=== PATIENT | male | born 1980 | race African-American/Black ===

== ENCOUNTER 2016-10-30 00:16 | Emergency (ER) ==
[2016-10-30 00:30] VITALS: BP 137/83; TEMP 98; BMI 29.0
[2016-10-30 01:03] LABS: BASOPHILS # (AUTO) 0.1 K/uL (0-0.2); BASOPHILS % (AUTO) 0.6 % (0.0-3.0); EOSINOPHILS # (AUTO) 0.3 K/ul (0.0-0.7); EOSINOPHILS % (AUTO) 3.1 % (0.0-7.0); HEMATOCRIT 44.8 % (42.0-52.0); HEMOGLOBIN 15.2 g/dl (14.0-18.0); IMMATURE GRANULOCYTE % (AUTO) 0.3 % (0.0-5.0); LYMPHOCYTES # (AUTO) 4.8 K/uL (0.60-3.4); LYMPHOCYTES % (AUTO) 44.2 (10.0-50.0); MEAN CORPUSCULAR HEMOGLOBIN 30.1 pg (27.0-31.0); MEAN CORPUSCULAR HGB CONC 33.9 (31.8-35.4); MEAN CORPUSCULAR VOLUME 88.7 fl (80.0-94.0); MONOCYTES # (AUTO) 0.9 K/uL (0.4-2.0); MONOCYTES % (AUTO) 7.9 (0-10); NEUTROPHILS # (AUTO) 4.8 K/ul (2.0-6.9); NEUTROPHILS % (AUTO) 43.9; PLATELET COUNT 404 10^3/uL (140-440); RED BLOOD COUNT 5.05 10^6/ul (4.70-6.10); WHITE BLOOD COUNT 10.81 K/ul (4.2-10.2)
[2016-10-30 01:11] LABS: BILIRUBIN,URINE Negative (NEGATIVE); KETONES,URINE Negative (NEGATIVE); LEUKOCYTE ESTERASE ,URINE Negative (NEGATIVE); NITRITE,URINE Negative (NEGATIVE); PH,URINE 5.5 (5-9); PROTEIN,URINE Negative (NEGATIVE); URINE, BLOOD Negative (NEGATIVE)
[2016-10-30 01:17] LABS: ADD URINE MICROSCOPIC NO
[2016-10-30 01:27] LABS: ALBUMIN/GLOBULIN RATIO 1.18; ANION GAP 14.8; BILIRUBIN,TOTAL 0.27 mg/dL (0.00-1.20); BUN/CREATININE RATIO 13.79; CALCIUM 9.7 mg/dL (8.2-10.2); CREATININE 0.87 mg/dL (0.60-1.10); POTASSIUM 3.8 mmol/L (3.5-5.1); TOTAL PROTEIN 7.4 g/dL (6.4-8.2)
[2016-10-30 01:34] LABS: ERYTHROCYTE SEDIMENTATION RATE 4 mm/hr (0-15); ESR INTERNAL QC INTERNAL QC VALID
--- NOTE | 2016-10-30 02:13 | ED.PDOC ---
General ED Provider: Dr. JOE LEWIS-ER Chief Complaint: Non-specific Complaint Stated Complaint: rafy got this itchy rash for 2 weeks Time Seen by Physician: 00:20 Mode of Arrival: Walk-In Information Source: Patient Exam Limitations: No limitations Nursing and Triage Documentation Reviewed and Agree: Yes Skin Complaint Exam - Skin Rash/Itching Complaint/Exam Onset/Duration: 2 weeeks Symptoms Are: Still present Initial Severity: Mild Current Severity: Mild Location: palms and soles of feet Potential Exposures: Reports: Unknown Aggravating: Reports: None Alleviating: Reports: None Associated Signs and Symptoms: Denies: Difficulty breathing, Fever, Chills Skin Findings: Present: Target lesions, Lesions Differential Diagnoses: Other Review of Systems - Review Of Systems Constitutional: Reports: No symptoms Eyes: Reports: No symptoms Ears, Nose, Mouth, Throat: Reports: No symptoms Respiratory: Reports: No symptoms Cardiac: Reports: No symptoms GI: Reports: No symptoms : Reports: No symptoms Musculoskeletal: Reports: No symptoms Skin: Reports: Lumps, Rash Neurological: Reports: No symptoms Endocrine: Reports: No symptoms Hematologic/Lymphatic: Reports: No symptoms All Other Systems: Reviewed and Negative Past Medical History - Past Medical History Endocrine: Reports: Unknown Cardiovascular: Reports: Hypertension Respiratory: Reports: Unknown Hematological: Reports: Unknown Gastrointestinal: Reports: Unknown Genitourinary: Reports: Unknown Neuro/Psych: Reports: Unknown Musculoskeletal: Reports: Unknown Cancer: Reports: Unknown - Surgical History General Surgical History: Reports: Unknown - Family History Family History: Reports: Unknown - Social History Smoking Status: Current every day smoker, Light tobacco smoker Hx Substance Use: No Alcohol Screening: Occasionally Lives: With family - Immunizations Tetanus Shot up to Date: No Physical Exam - Physical Exam Appearance: Well-appearing, No pain distress, Well-nourished Eyes: FILIPE, EOMI, Conjunctiva clear ENT: Ears normal, Nose normal, Oropharynx normal Neck: Supple Respiratory: Airway patent Cardiovascular: RRR GI/: Soft, Nontender, No masses, Bowel sounds normal, No Organomegaly Musculoskeletal: Normal strength, ROM intact, No edema, No calf tenderness Skin: Warm, Dry, Normal color Neurological: Sensation intact, Motor intact, Reflexes intact, Cranial nerves intact, Alert, Oriented Psychiatric: Affect appropriate Critical Care Note - Critical Care Note Total Time (mins): 0 Course - Course Hematology/Chemistry: 10/30/16 00:55 10/30/16 00:55 Orders, Labs, Meds: Lab Review 10/30/16 10/30/16 00:50 00:55 WBC 10.81 H RBC 5.05 Hgb 15.2 Hct 44.8 MCV 88.7 MCH 30.1 MCHC 33.9 RDW Coeff of Constantine 12.4 Plt Count 404 Immature Gran % (Auto) 0.3 Neut % (Auto) 43.9 Lymph % (Auto) 44.2 Jenkins % (Auto) 7.9 Eos % (Auto) 3.1 Baso % (Auto) 0.6 Immature Gran # (Auto) 0.0 Neut # 4.8 Lymph # 4.8 H Jenkins # 0.9 Eos # 0.3 Baso # 0.1 ESR 4 Sodium 142 Potassium 3.8 Chloride 107 Carbon Dioxide 24 Anion Gap 14.8 BUN 12 Creatinine 0.87 Estimated GFR (MDRD) 119.00 BUN/Creatinine Ratio 13.79 Glucose 119 H Calcium 9.7 Total Bilirubin 0.27 AST 22 ALT 40 Alkaline Phosphatase 59 Total Protein 7.4 Albumin 4.0 Globulin 3.4 Albumin/Globulin Ratio 1.18 Urine Color Yellow Urine Clarity Clear Urine pH 5.5 Ur Specific Fleming 1.025 Urine Protein Negative Urine Glucose (UA) Negative Urine Ketones Negative Urine Blood Negative Urine Nitrite Negative Urine Bilirubin Negative Urine Urobilinogen 1.0 Ur Leukocyte Esterase Negative Orders Category Date Time Status EKG-(ED ONLY) Stat CARDIO 10/30/16 00:40 Ordered BLOOD CULTURE Stat LAB 10/30/16 00:55 Received CBC W/ AUTO DIFF Stat LAB 10/30/16 00:55 Completed COMPREHENSIVE METABOLIC PANEL Stat LAB 10/30/16 00:55 Completed CRP [C-REACTIVE PROTEIN] Stat LAB 10/30/16 00:55 Received ESR Stat LAB 10/30/16 00:55 Completed URINALYSIS C & S IF INDICATED Stat LAB 10/30/16 00:50 Completed Vital Signs: Temp Pulse Resp BP Pulse Ox 10/30/16 00:17 98 F 89 20 137/83 95 Departure - Departure Time of Disposition: 02:12 Disposition: HOME SELF-CARE Discharge Problem: Rash Instructions: Acute Rash (ED) Condition: Good Pt referred to PMD for follow-up: Yes Additional Instructions: atarax 25mg qid prn itching#30--shelley will contact you this am for referral to dermatology Allergies/Adverse Reactions: Allergies No Known Drug Allergies Adverse Reaction (Verified 10/30/16 00:29) Home Medications: Ambulatory Orders 1 [No Reported Medications] 10/30/16 Disposition Discussed With: Patient
== END 2016-10-30 02:23 | disposition home or self-care (01) ==
LOC: ED 00:16
DX: R21 Rash and other nonspecific skin eruption (principal); F17.210 Nicotine dependence, cigarettes, uncomplicated
CPT/HCPCS: 36415; 80053; 81001; 85025; 85651; 86140; 87040; 93005; 93010; 99283

== ENCOUNTER 2016-12-10 09:09 | Emergency (ER) ==
[2016-12-10 09:16] VITALS: BP 152/92; TEMP 97.4; BMI 29.9
[2016-12-10 09:39] LABS: BASOPHILS # (AUTO) 0.1 K/uL (0-0.2); BASOPHILS % (AUTO) 0.5 % (0.0-3.0); EOSINOPHILS # (AUTO) 0.2 K/ul (0.0-0.7); HEMATOCRIT 47.1 % (42.0-52.0); HEMOGLOBIN 16.1 g/dl (14.0-18.0); IMMATURE GRANULOCYTE % (AUTO) 0.3 % (0.0-5.0); LYMPHOCYTES # (AUTO) 3.8 K/uL (0.60-3.4); LYMPHOCYTES % (AUTO) 40.2 (10.0-50.0); MEAN CORPUSCULAR HEMOGLOBIN 29.9 pg (27.0-31.0); MEAN CORPUSCULAR HGB CONC 34.2 (31.8-35.4); MEAN CORPUSCULAR VOLUME 87.5 fl (80.0-94.0); MONOCYTES # (AUTO) 0.6 K/uL (0.4-2.0); MONOCYTES % (AUTO) 6.3 (0-10); NEUTROPHILS # (AUTO) 4.7 K/ul (2.0-6.9); NEUTROPHILS % (AUTO) 50.7; PLATELET COUNT 405 10^3/uL (140-440); RED BLOOD COUNT 5.38 10^6/ul (4.70-6.10); WHITE BLOOD COUNT 9.32 K/ul (4.2-10.2)
--- NOTE | 2016-12-10 09:39 | ED.PDOC ---
General ED Provider: Dr. CAMELIA GREY JR Chief Complaint: Cough Stated Complaint: NON PRODUCTIVE COUGH THAT HAS BEEN GOING ON FOR 2 WEEKS. JUST UNABLE TO GET RID OF IT[End] 97.4 96 20 96% 152/92 2 WEEKS. HTN SMOKES SMALL CIGARS OCCASIONALLY Time Seen by Physician: 09:38 Mode of Arrival: Walk-In Information Source: Patient Exam Limitations: No limitations Nursing and Triage Documentation Reviewed and Agree: No Review of Systems - Review Of Systems Constitutional: Reports: No symptoms. Denies: Fever Eyes: Reports: No symptoms Ears, Nose, Mouth, Throat: Reports: Nose discharge (DRAINAGE DOWN THROAT) Respiratory: Reports: Cough Cardiac: Reports: No symptoms GI: Reports: No symptoms : Reports: No symptoms Musculoskeletal: Reports: No symptoms Skin: Reports: No symptoms Neurological: Reports: No symptoms Endocrine: Reports: No symptoms Hematologic/Lymphatic: Reports: No symptoms All Other Systems: Other Past Medical History - Past Medical History Endocrine: Reports: Unknown Cardiovascular: Reports: Hypertension Respiratory: Reports: Unknown Hematological: Reports: Unknown Gastrointestinal: Reports: Unknown Genitourinary: Reports: Unknown Neuro/Psych: Reports: Unknown Musculoskeletal: Reports: Unknown Cancer: Reports: Unknown - Surgical History General Surgical History: Reports: Unknown - Family History Family History: Reports: Unknown - Social History Smoking Status: Current every day smoker, Light tobacco smoker Hx Substance Use: No Alcohol Screening: Occasionally Physical Exam - Physical Exam Appearance: Well-appearing Ill-appearing: Mild Pain Distress: Mild Eyes: FILIPE, EOMI, Conjunctiva clear ENT: Ears normal (RIGHT EAR CONGESTED CLOUDINESS NO ERYTHEMA NOT TENDER) Neck: Supple Respiratory: Airway patent, Breath sounds equal, Breath sounds diminished, Respirations nonlabored, Rhonchi (ON THE RIGHT) Cardiovascular: RRR, Pulses normal, No rub, No murmur GI/: Soft, Nontender, No masses, Bowel sounds normal, No Organomegaly Musculoskeletal: Normal strength, ROM intact, No edema, No calf tenderness Skin: Warm, Dry, Normal color Neurological: Sensation intact, Motor intact, Reflexes intact, Cranial nerves intact, Alert, Oriented Psychiatric: Affect appropriate, Mood appropriate Critical Care Note - Critical Care Note Total Time (mins): 0 Course - Course Hematology/Chemistry: 12/10/16 09:39 Orders, Labs, Meds: Lab Review 12/10/16 09:39 WBC 9.32 RBC 5.38 Hgb 16.1 Hct 47.1 MCV 87.5 MCH 29.9 MCHC 34.2 RDW Coeff of Constantine 12.3 Plt Count 405 Immature Gran % (Auto) 0.3 Neut % (Auto) 50.7 Lymph % (Auto) 40.2 Tama % (Auto) 6.3 Eos % (Auto) 2.0 Baso % (Auto) 0.5 Immature Gran # (Auto) 0.0 Neut # 4.7 Lymph # 3.8 H Tama # 0.6 Eos # 0.2 Baso # 0.1 Orders Category Date Time Status CBC W/ AUTO DIFF Stat LAB 12/10/16 09:39 Completed CHEST, 2 VIEWS PA & LAT Stat RADS 12/10/16 09:20 Completed Vital Signs: Temp Pulse Resp BP Pulse Ox 12/10/16 09:10 97.4 F L 96 H 20 152/92 H 96 Departure - Departure Time of Disposition: 09:50 Disposition: HOME SELF-CARE Discharge Problem: Bronchitis Instructions: Acute Bronchitis (ED) Condition: Good Pt referred to PMD for follow-up: Yes Additional Instructions: ANY ANTIBISTMINE DECONGESTANT FOR FIVE TO TEN DAYS TO RELEIVE CONGESTION PREDNISONE FOR INFLAMMATION BACTRIM ANTIBIOTIC UNTIL GONE COUGH MEDICATION MAY USE OVER THE COUNTER DM COUGH MEDICATION OR ROBITUSSIN AC RETURN IF FEVER OVER 101.0 IF INCREASE SHORTNESS OF BREATH Prescriptions: Sulfamethoxazole/Trimethoprim [Bactrim Ds 800/160 mg] 1 tab PO Q12HR #14 tablet Guaifenesin/Codeine Phosphate [Robitussin AC Syrup] 10 ml PO Q6H PRN #240 ml PRN Reason: Cough Loratadine/Pseudoephedrine [Claritin-D 12 Hour Tablet] 1 each PO BID PRN #60 tab.er.12h PRN Reason: Allergy Symptoms Allergies/Adverse Reactions: Allergies No Known Drug Allergies Adverse Reaction (Verified 12/10/16 09:14) Home Medications: Ambulatory Orders Guaifenesin/Codeine Phosphate [Robitussin AC Syrup] 10 ml PO Q6H PRN #240 ml Loratadine/Pseudoephedrine [Claritin-D 12 Hour Tablet] 1 each PO BID PRN #60 tab.er.12h 12/10/16 Sulfamethoxazole/Trimethoprim [Bactrim Ds 800/160 mg] 1 tab PO Q12HR #14 tablet 12/10/16
--- NOTE | 2016-12-10 09:44 | DI ---
EXAM: Two views of the chest. History: Cough. Findings: Heart size is normal. No focal consolidation. No appreciable pleural fluid and no pneum othorax. No acute osseous abnormalities. Impression: No acute cardiopulmonary process
== END 2016-12-10 10:10 | disposition home or self-care (01) ==
LOC: ED 09:09
DX: J20.9 Acute bronchitis, unspecified (principal); F17.210 Nicotine dependence, cigarettes, uncomplicated
CPT/HCPCS: 36415; 85025; 99282